=== PATIENT | male | born 1985 | race African-American/Black ===

== ENCOUNTER 2016-10-18 11:23 | Emergency (ER) | payer OTHER ==
[~2016-10-18] VITALS: Ht 182.9 cm; Wt 96.1 kg
[2016-10-18 12:20] VITALS: BP 144/71
== END 2016-10-18 12:21 ==
LOC: EME 11:23
PROC: 0CQ1XZZ Repair Lower Lip, External Approach (ICD-10-PCS; principal; 2016-10-18)
DX: S01.511A Laceration without foreign body of lip, initial encounter (principal); W51.XXXA Accidental striking against or bumped into by another person, initial encounter; Z87.891 Personal history of nicotine dependence
CPT/HCPCS: 99281; 99284